=== PATIENT | female | born 1975 | race Caucasian/White ===

== ENCOUNTER 2016-06-01 23:30 | Emergency (ER) | payer OTHER ==
[~2016-06-01] VITALS: Ht 160 cm; Wt 106.6 kg
[~2016-06-01 23:30] MED LIST: ADVAIR 500/501 DISK IH; ALBUTEROL SULF8.5 GM IH; AMITRIPTYLINE H10 MG PO; ASPIR-LOW81 MG PO; ASPIRIN EC325 MG PO; ASPIRIN325 MG PO; ASPIRIN81 M2 PO; AVELOX400 MG PO; Aspirin E.C. PO; BUSPAR30 MG PO; BYSTOLIC5 MG PO; Buspar PO; CELEBREX100 MG PO; CHLORASEPTIC177 ML MM; CIPRO500 MG PO; CLINDAMYCIN HC300 MG PO; CRESTOR10 MG PO; CYMBALTA60 MG PO; Colace PO; DURAGESIC12 MCG TD; DURAGESIC25 MCG TD; DURAGESIC50 MCG TD; ENDOCET 5-3251 EACH PO; ERGOCALCIF50000 UNIT PO; ESCITALOPRAM OX10 MG PO; ESCITALOPRAM OX20 MG PO; FENTANYL; FENTANYL1 EAC1 TD; FIORICET 50-301 EACH PO; FIORICET,ESG1 TABLET PO; FLONASE16 G1 BOTH NARES; FLONASE16 G1 NS; GABAPENTIN400 MG PO; GABAPENTIN800 MG PO; GLUCAGON1 MG IM; GLUCOPHAGE XR,500 MG PO; GLUCOPHAGE500 MG PO; Glucophage PO; HUMALOG100 UNIT/1 SC; HUMALOG100 UNITS/ PO; HYDROCODON-ACE1 EAC7 PO; Habitrol,Nicoderm CQ TD; IBUPROFEN800 MG PO; INSULIN PUMP SC; INSULIN PUMP SCCONT; IRON55 MG PO; JANUMET 50/11 TABLET PO; KEFLEX500 MG PO; KEPPRA500 MG PO; Keppra PO; LANTUS 10100 UNITS/ SC; LANTUS 3 M100 UNITS1 SC; LANTUS100 UNIT/1 SQ; LEVAQUIN750 MG PO; LEVEMIR FL100 UNIT/1 SC; LEVETIRACETAM500 MG PO; LEVOTHROID150 MCG PO; LEVOTHYROXINE125 MCG PO; LEVOTHYROXINE175 MCG PO; LEVOXYL150 MCG PO; LEVOXYL25 MCG PO; LEXAPRO10 MG PO; LEXAPRO20 MG PO; LO-DOSE ASPIRIN81 M1 PO; LORTAB 5-325 M1 EACH PO; LOVASTATIN40 MG PO; LOW DOSE ASPIRI81 M1 PO; MAXALT10 MG PO; METFORMIN HCL1000 M1 PO; METOPROLOL SUCC50 MG PO; MEVACOR40 MG PO; MOTRIN600 MG PO; MULTIPLE VITAM1 EAC1 PO; Maalox, Mylanta PO; Milk Of Magnesia,MOM PO; NEURONTIN400 MG PO; NORCO 5-325 TA1 EACH PO; NOVOLOG PE100 UNITS/ SC; NOVOLOG100 UNIT/2 SQ; Neurontin PO; OXYCODONE-APAP1 EACH PO; PERCOCET 5/31 TABLET PO; PREDNISONE2.5 MG PO; PREDNISONE5 MG PO; PROMETHAZINE HC25 M1 PO; Percocet 5/325,Endoc PO; RANITIDINE HCL300 MG PO; RAYOS5 MG PO; RELPAX40 MG PO; ROPINIROLE HCL1 MG PO; Rocephin IV; SINGULAIR10 MG PO; SYNTHROID125 MCG PO; SYNTHROID200 MCG PO; T:SLIM1 EAC1 MC; THROAT SPRAY177 M1 MM; TOPAMAX200 MG PO; TOPROL XL50 MG PO; TYLENOL REGULA325 MG PO; Toprol XL PO; VENTOLIN17 GM IH; VITAMIN D50000 UNI1; VITAMIN D50000 UNI1 PO; XOPENEX HF200 INHALA IH; ZANTAC300 MG PO; ZEASORB POWDE70.9 GM TP; ZEASORB-AF70 G1 TP; ZITHROMAX500 MG PO; ZOFRAN ODT4 MG PO; ZOFRAN4 MG PO; Zeasorb Antifungal Treatment,Mitrazol Powder TP; Zofran IV; [UNRECOGNIZED DRUG - OTHER] PO; morphine Sulfate IV
[2016-06-02 02:14] LABS: HEMATOCRIT 43.1 % (36.0-46.0); MCHC 33.9 G/DL (30.0-36.0); MCV 85.7 FL (83-99); MEAN PLAT.VOLUME 10.2 uM^3 (9.5-12.4); PLATELET COUNT 202 K/uL (156-360); RBC DIS.WIDTH-CV 17.4 % (11.8-14.6); RBC DIS.WIDTH-SD 53.7 % (39-53); RED BLOOD COUNT 5.03 M/uL (3.80-5.20); WHITE BLOOD COUNT 7.5 K/uL (4.1-10.2)
[2016-06-02 02:23] LABS: CHLORIDE 108 mEq/L (99-109); POTASSIUM 3.7 mEq/L (3.7-5.4); SODIUM 140 mEq/L (136-147)
[2016-06-02 02:25] LABS: GLUCOSE 76 mg/dL (70-99)
[2016-06-02 02:26] LABS: ANION GAP 12 MEQ/L (2-14)
[2016-06-02 02:28] LABS: GFR ESTIMATE (CALCULATED) > 59 mL/min/
[2016-06-02 02:29] LABS: UREA NITROGEN (BUN) 9 mg/dL (9-23)
[2016-06-02 06:56] VITALS: BP 129/66
== END 2016-06-02 06:59 | disposition short-term general hospital (02) ==
LOC: EME 23:30
PROVIDERS: Emergency Medicine
DX: R51 Headache (principal); R42 Dizziness and giddiness; R11.0 Nausea; G91.9 Hydrocephalus, unspecified; Z98.2 Presence of cerebrospinal fluid drainage device; E11.9 Type 2 diabetes mellitus without complications; K21.9 Gastro-esophageal reflux disease without esophagitis; R56.9 Unspecified convulsions; Z86.73 Personal history of transient ischemic attack (TIA), and cerebral infarction without residual deficits; Z79.4 Long term (current) use of insulin; F17.200 Nicotine dependence, unspecified, uncomplicated
CPT/HCPCS: 70250; 70360; 70450; 71010; 74000; 80048; 85027; 99281; 99285; J0780

== ENCOUNTER 2016-06-13 23:13 | Emergency (ER) | payer OTHER ==
[~2016-06-13] VITALS: Ht 160 cm; Wt 104.1 kg
[2016-06-14 01:40] LABS: HEMATOCRIT 43.7 % (36.0-46.0); MCH 29.1 PG (29.0-34.0); MCHC 33.9 G/DL (30.0-36.0); MCV 85.9 FL (83-99); MEAN PLAT.VOLUME 10.9 uM^3 (9.5-12.4); PLATELET COUNT 200 K/uL (156-360); RBC DIS.WIDTH-CV 16.7 % (11.8-14.6); RBC DIS.WIDTH-SD 52.2 % (39-53); RED BLOOD COUNT 5.09 M/uL (3.80-5.20); WHITE BLOOD COUNT 8.2 K/uL (4.1-10.2)
[2016-06-14] MEDS ORDERED: XARELTO20 MG PO (01:47)
[2016-06-14] MEDS ORDERED: LEVOTHYROXINE175 MCG PO (01:47)
[2016-06-14] MEDS ORDERED: INSULIN PUMP SCCONT (01:52)
[2016-06-14] MEDS ORDERED: PROAIR HFA8.5 GM IH (01:52)
[2016-06-14 02:57] LABS: CHLORIDE 109 mEq/L (99-109); POTASSIUM 3.6 mEq/L (3.7-5.4); SODIUM 142 mEq/L (136-147)
[2016-06-14 02:59] LABS: GLUCOSE 117 mg/dL (70-99)
[2016-06-14 03:00] LABS: ANION GAP 12 MEQ/L (2-14)
[2016-06-14 03:03] LABS: GFR ESTIMATE (CALCULATED) > 59 mL/min/
[2016-06-14 03:04] LABS: UREA NITROGEN (BUN) 13 mg/dL (9-23)
[2016-06-14 05:40] VITALS: BP 103/62
== END 2016-06-14 05:43 | disposition short-term general hospital (02) ==
LOC: EME 23:13
PROVIDERS: Emergency Medicine
DX: R51 Headache (principal); H53.149 Visual discomfort, unspecified; Z98.2 Presence of cerebrospinal fluid drainage device; E11.9 Type 2 diabetes mellitus without complications; F31.9 Bipolar disorder, unspecified; K21.9 Gastro-esophageal reflux disease without esophagitis; R56.9 Unspecified convulsions; Z86.73 Personal history of transient ischemic attack (TIA), and cerebral infarction without residual deficits; Z79.4 Long term (current) use of insulin; F17.200 Nicotine dependence, unspecified, uncomplicated
CPT/HCPCS: 70250; 70360; 70450; 71010; 74000; 80048; 81003; 85027; 87040; 99281; 99285; J2270; J2405; J2765

== ENCOUNTER 2016-06-26 23:18 | Emergency (ER) | payer OTHER ==
[~2016-06-26] VITALS: Ht 160 cm; Wt 103.7 kg
[~2016-06-26 23:18] MED LIST changes: +PROAIR HFA8.5 GM IH; +XARELTO20 MG PO
[2016-06-26 23:37] LABS: POINT-OF-CARE METER ID UU13113778; POINT-OF-CARE USER ID NUTMMM10
[2016-06-26 23:53] LABS: HEMATOCRIT 41.9 % (36.0-46.0); MCH 29.4 PG (29.0-34.0); MCHC 33.2 G/DL (30.0-36.0); MCV 88.8 FL (83-99); MEAN PLAT.VOLUME 10.9 uM^3 (9.5-12.4); PLATELET COUNT 193 K/uL (156-360); RBC DIS.WIDTH-CV 16.9 % (11.8-14.6); RBC DIS.WIDTH-SD 54.1 % (39-53); RED BLOOD COUNT 4.72 M/uL (3.80-5.20)
[2016-06-27 00:07] LABS: CHLORIDE 102 mEq/L (99-109); POTASSIUM 4.3 mEq/L (3.7-5.4); SODIUM 138 mEq/L (136-147)
[2016-06-27 00:09] LABS: GLUCOSE 233 mg/dL (70-99)
[2016-06-27 00:10] LABS: ANION GAP 11 MEQ/L (2-14)
[2016-06-27 00:11] LABS: TOTAL BILIRUBIN 0.5 mg/dL (0.0-1.0)
[2016-06-27 00:13] LABS: ALKALINE PHOSPHATASE 136 IU/L (3-129); GFR ESTIMATE (CALCULATED) > 59 mL/min/
[2016-06-27 00:14] LABS: UREA NITROGEN (BUN) 8 mg/dL (9-23)
[2016-06-27 00:23] LABS: QUANTITATIVE HCG < 4.0 MIU/ML
[2016-06-27 01:36] LABS: POINT-OF-CARE METER ID UU13113702
[2016-06-27 02:27] LABS: EOSINOPHIL (%) 0 % (0-5); IMMATURE GRANULOCYTE (%) 0.2 % (0.0-0.7); LYMPHOCYTE COUNT 2.6 K/uL (1.0-2.8); MONOCYTE (%) 9.8 % (3-12); MONOCYTE COUNT 0.9 K/uL (0-0.8); NEUTROPHIL (%) 61.3 % (45-76); NEUTROPHIL COUNT 5.6 K/uL (1.8-6.4)
[2016-06-27 02:39] LABS: ADD MIUA? NO; BILIRUBIN NEGATIVE; BLOOD NEGATIVE; COLOR YELLOW ((YELLOW)); GLUCOSE (STRIP) >=500; KETONES NEGATIVE; LEUKOCYTES NEGATIVE; NITRITE NEGATIVE; PROTEIN (STRIP) NEGATIVE; SPECIFIC GRAVITY 1.011 (1.000-1.030); UCUL ADDED? NO; UROBILINOGEN 0.2 MG/DL (0.2-1.0)
[2016-06-27 03:17] VITALS: BP 112/67
== END 2016-06-27 03:19 | disposition home or self-care (01) ==
LOC: EME 23:18
PROVIDERS: Emergency Medicine
DX: E10.65 Type 1 diabetes mellitus with hyperglycemia (principal); Z76.4 Other boarder to healthcare facility; Z96.41 Presence of insulin pump (external) (internal); Z98.2 Presence of cerebrospinal fluid drainage device; R11.2 Nausea with vomiting, unspecified; Z98.890 Other specified postprocedural states; Z79.01 Long term (current) use of anticoagulants; F17.200 Nicotine dependence, unspecified, uncomplicated
CPT/HCPCS: 80053; 81003; 82948; 84702; 85025; 85027; 99281; 99285; J2270; J2405; J7030

== ENCOUNTER 2016-06-29 12:22 | Emergency (ER) | payer OTHER ==
[~2016-06-29] VITALS: Ht 160 cm; Wt 104.1 kg
[2016-06-29 13:33] LABS: HEMATOCRIT 41.1 % (36.0-46.0); MCH 29.7 PG (29.0-34.0); MCHC 33.6 G/DL (30.0-36.0); MCV 88.6 FL (83-99); MEAN PLAT.VOLUME 10.6 uM^3 (9.5-12.4); PLATELET COUNT 188 K/uL (156-360); RBC DIS.WIDTH-CV 17.1 % (11.8-14.6); RBC DIS.WIDTH-SD 53.9 % (39-53); RED BLOOD COUNT 4.64 M/uL (3.80-5.20); WHITE BLOOD COUNT 7.4 K/uL (4.1-10.2)
[2016-06-29 13:43] LABS: PROTHROMBIN TIME 11.7 (9.2-11.2); PTT 43.9 (25-32)
[2016-06-29 13:47] LABS: CHLORIDE 107 mEq/L (99-109); INTER. NORMALIZED RATIO 1.1; POTASSIUM 3.8 mEq/L (3.7-5.4); SODIUM 140 mEq/L (136-147)
[2016-06-29 13:49] LABS: GLUCOSE 123 mg/dL (70-99)
[2016-06-29 13:50] LABS: ANION GAP 8 MEQ/L (2-14)
[2016-06-29 13:51] LABS: TOTAL BILIRUBIN 0.6 mg/dL (0.0-1.0)
[2016-06-29 13:53] LABS: ALKALINE PHOSPHATASE 131 IU/L (3-129); GFR ESTIMATE (CALCULATED) > 59 mL/min/
[2016-06-29 13:54] LABS: UREA NITROGEN (BUN) 7 mg/dL (9-23)
[2016-06-29] MEDS ORDERED: VIBRAMYCIN100 MG PO (15:05)
[2016-06-29 15:36] VITALS: BP 128/67
== END 2016-06-29 15:38 | disposition home or self-care (01) ==
LOC: RME 12:22 → EME 12:22 → RME 15:38
PROVIDERS: Physician Assistant
DX: I80.9 Phlebitis and thrombophlebitis of unspecified site (principal); L03.114 Cellulitis of left upper limb; E11.9 Type 2 diabetes mellitus without complications; G91.9 Hydrocephalus, unspecified; G89.29 Other chronic pain; Z79.01 Long term (current) use of anticoagulants; Z95.2 Presence of prosthetic heart valve; Z98.890 Other specified postprocedural states; Z86.718 Personal history of other venous thrombosis and embolism; Z79.4 Long term (current) use of insulin
CPT/HCPCS: 80053; 85027; 85610; 85730; 93971; 99281; 99284

== ENCOUNTER 2016-07-17 12:46 | Inpatient (IN) | payer OTHER ==
[~2016-07-17] VITALS: Ht 160 cm; Wt 101.7 kg
[~2016-07-17 12:46] MED LIST changes: +VIBRAMYCIN100 MG PO
[2016-07-17 16:09] LABS: HEMATOCRIT 44.7 % (36.0-46.0); MCH 30.5 PG (29.0-34.0); MCV 89.6 FL (83-99); MEAN PLAT.VOLUME 10.9 uM^3 (9.5-12.4); PLATELET COUNT 193 K/uL (156-360); RBC DIS.WIDTH-CV 15.7 % (11.8-14.6); RBC DIS.WIDTH-SD 51.3 % (39-53); RED BLOOD COUNT 4.99 M/uL (3.80-5.20); WHITE BLOOD COUNT 7.3 K/uL (4.1-10.2)
[2016-07-17 16:36] LABS: CHLORIDE 105 mEq/L (99-109); POTASSIUM 3.4 mEq/L (3.7-5.4); SODIUM 140 mEq/L (136-147)
[2016-07-17 16:39] LABS: GLUCOSE 111 mg/dL (70-99)
[2016-07-17 16:40] LABS: ANION GAP 13 MEQ/L (2-14)
[2016-07-17 16:41] LABS: TOTAL BILIRUBIN 0.8 mg/dL (0.0-1.0)
[2016-07-17 16:42] LABS: ALKALINE PHOSPHATASE 184 IU/L (3-129); GFR ESTIMATE (CALCULATED) > 59 mL/min/
[2016-07-17 16:43] LABS: UREA NITROGEN (BUN) 14 mg/dL (9-23)
[2016-07-17 23:32] LABS: ADD MIUA? YES; BILIRUBIN NEGATIVE; BLOOD NEGATIVE; COLOR YELLOW ((YELLOW)); GLUCOSE (STRIP) >=500; KETONES 20; LEUKOCYTES NEGATIVE; NITRITE NEGATIVE; PROTEIN (STRIP) NEGATIVE; UROBILINOGEN 0.2 MG/DL (0.2-1.0)
[2016-07-17 23:43] LABS: BACTERIA 2+ /HPF; EPITHELIAL CELLS 2+ /HPF; MUCUS TRACE /LPF; RED BLOOD CELLS 20-30 /HPF (0-5); UCUL ADDED? NO; WHITE BLOOD CELLS 0-5 /HPF (0-5)
[2016-07-18 01:30] LABS: POINT-OF-CARE METER ID UU13113702
[2016-07-18 03:11] VITALS: BP 119/60
[2016-07-18 06:47] LABS: HEMATOCRIT 43.5 % (36.0-46.0); MCH 29.3 PG (29.0-34.0); MCHC 31.5 G/DL (30.0-36.0); MCV 93.1 FL (83-99); MEAN PLAT.VOLUME 11.3 uM^3 (9.5-12.4); PLATELET COUNT 145 K/uL (156-360); RBC DIS.WIDTH-CV 15.8 % (11.8-14.6); RBC DIS.WIDTH-SD 54.3 % (39-53); RED BLOOD COUNT 4.67 M/uL (3.80-5.20); WHITE BLOOD COUNT 5.4 K/uL (4.1-10.2)
[2016-07-18 07:11] LABS: ALKALINE PHOSPHATASE 155 IU/L (3-129); ANION GAP 13 MEQ/L (2-14); CHLORIDE 103 MEQ/L (99-109); GFR ESTIMATE (CALCULATED) > 59 mL/min/; SAMPLE HEMOLYSIS CHECK 0; SAMPLE ICTERIC CHECK 0; SAMPLE LIPEMIA CHECK 0; SODIUM 134 MEQ/L (136-147); UREA NITROGEN (BUN) 12 mg/dL (9-23)
[2016-07-18 07:19] LABS: GLUCOSE 328 mg/dL (70-99); POTASSIUM 4.3 MEQ/L (3.7-5.4)
[2016-07-18 08:19] LABS: POINT-OF-CARE METER ID UU13113831
[2016-07-18 08:22] VITALS: BP 107/56
[2016-07-18 10:52] LABS: POINT-OF-CARE METER ID UU14100415
[2016-07-18 11:56] VITALS: BP 125/78
[2016-07-18 12:05] LABS: POINT-OF-CARE METER ID UU13113831
[2016-07-18 16:08] VITALS: BP 118/72
[2016-07-18 17:42] LABS: POINT-OF-CARE METER ID UU14162513
[2016-07-18 20:41] VITALS: BP 99/53
[2016-07-18 23:01] VITALS: BP 100/55
[2016-07-19 03:57] VITALS: BP 116/57
[2016-07-19 08:06] VITALS: BP 119/58
[2016-07-19 12:44] LABS: POINT-OF-CARE METER ID UU13113700
[2016-07-19 12:48] VITALS: BP 119/57
[2016-07-19 15:24] VITALS: BP 96/54
[2016-07-19 16:43] LABS: POINT-OF-CARE METER ID UU13113700
[2016-07-19 19:00] VITALS: BP 123/71
[2016-07-19 21:43] LABS: POINT-OF-CARE METER ID UU13113831
[2016-07-20] VITALS: BP 135/76
[2016-07-20 04:59] VITALS: BP 119/56
[2016-07-20 07:35] VITALS: BP 114/53
[2016-07-20 12:11] VITALS: BP 100/44
[2016-07-20 16:30] VITALS: BP 114/52
== END 2016-07-20 19:14 | disposition short-term general hospital (02) | DRG 93 ==
LOC: EME 12:46 → EDOF 07-18 01:15 → 5WEST 07-18 02:31
PROVIDERS: Internal Medicine; Nurse Practitioner Family; Student in an Organized Health Care Education/Training Program
DX: T85.02XA Displacement of ventricular intracranial (communicating) shunt, initial encounter (principal); G89.29 Other chronic pain; F32.9 Major depressive disorder, single episode, unspecified; E78.00 Pure hypercholesterolemia, unspecified; E11.9 Type 2 diabetes mellitus without complications; F17.200 Nicotine dependence, unspecified, uncomplicated; G44.001 Cluster headache syndrome, unspecified, intractable; F40.298 Other specified phobia; Q03.9 Congenital hydrocephalus, unspecified; G40.909 Epilepsy, unspecified, not intractable, without status epilepticus; Z91.018 Allergy to other foods; Z86.718 Personal history of other venous thrombosis and embolism; Z79.4 Long term (current) use of insulin; Z86.73 Personal history of transient ischemic attack (TIA), and cerebral infarction without residual deficits; Z96.41 Presence of insulin pump (external) (internal)
CPT/HCPCS: 70450; 74176; 80053; 81003; 82948; 85027; 99281; 99285; J1170; J1644; J1815; J2270; J2405; J3010; J7030; J7042; J7050

== ENCOUNTER 2016-07-28 12:31 | Emergency (ER) | payer OTHER ==
[~2016-07-28] VITALS: Ht 160 cm; Wt 101.0 kg
[2016-07-28 13:22] LABS: EOSINOPHIL (%) 0 % (0-5); HEMATOCRIT 43.2 % (36.0-46.0); IMMATURE GRANULOCYTE (%) 0.5 % (0.0-0.7); INSTRUMENT ABS NEUTROPHIL CT 3.6 K/uL; LYMPHOCYTE COUNT 1.4 K/uL (1.0-2.8); MCH 30.4 PG (29.0-34.0); MCHC 32.6 G/DL (30.0-36.0); MCV 93.1 FL (83-99); MEAN PLAT.VOLUME 10.9 uM^3 (9.5-12.4); MONOCYTE (%) 9.3 % (3-12); MONOCYTE COUNT 0.5 K/uL (0-0.8); NEUTROPHIL (%) 65.2 % (45-76); NEUTROPHIL COUNT 3.6 K/uL (1.8-6.4); RBC DIS.WIDTH-CV 15.4 % (11.8-14.6); RBC DIS.WIDTH-SD 53.1 % (39-53); RED BLOOD COUNT 4.64 M/uL (3.80-5.20); WHITE BLOOD COUNT 5.6 K/uL (4.1-10.2)
[2016-07-28 13:25] LABS: PLATELET COUNT 204 K/uL (156-360)
[2016-07-28 13:33] LABS: CHLORIDE 108 mEq/L (99-109); POTASSIUM 3.7 mEq/L (3.7-5.4); SODIUM 142 mEq/L (136-147)
[2016-07-28 13:35] LABS: GLUCOSE 105 mg/dL (70-99)
[2016-07-28 13:36] LABS: ANION GAP 10 MEQ/L (2-14)
[2016-07-28 13:39] LABS: GFR ESTIMATE (CALCULATED) > 59 mL/min/
[2016-07-28 13:40] LABS: UREA NITROGEN (BUN) 8 mg/dL (9-23)
[2016-07-28 18:24] VITALS: BP 116/79
[2016-07-28] MEDS ORDERED: ZOFRAN ODT4 MG PO (18:24)
== END 2016-07-28 19:36 | disposition home or self-care (01) ==
LOC: EME 12:31
DX: R51 Headache (principal); Z98.2 Presence of cerebrospinal fluid drainage device; Z86.14 Personal history of Methicillin resistant Staphylococcus aureus infection; E11.9 Type 2 diabetes mellitus without complications; K21.9 Gastro-esophageal reflux disease without esophagitis; R56.9 Unspecified convulsions; Z86.73 Personal history of transient ischemic attack (TIA), and cerebral infarction without residual deficits; Z96.41 Presence of insulin pump (external) (internal); F17.200 Nicotine dependence, unspecified, uncomplicated
CPT/HCPCS: 70250; 70450; 71020; 74000; 80048; 81003; 83605; 85025; 87040; 99281; 99284; J2270; J2405; J3370

== ENCOUNTER 2016-08-01 01:43 | Emergency (ER) | payer OTHER ==
[~2016-08-01] VITALS: Ht 160 cm; Wt 102.5 kg
[2016-08-01 02:36] LABS: HEMATOCRIT 44.8 % (36.0-46.0); MCH 30.1 PG (29.0-34.0); MCHC 32.1 G/DL (30.0-36.0); MCV 93.7 FL (83-99); MEAN PLAT.VOLUME 10.4 uM^3 (9.5-12.4); PLATELET COUNT 231 K/uL (156-360); RBC DIS.WIDTH-CV 15.3 % (11.8-14.6); RED BLOOD COUNT 4.78 M/uL (3.80-5.20); WHITE BLOOD COUNT 6.9 K/uL (4.1-10.2)
[2016-08-01 02:49] LABS: CHLORIDE 107 mEq/L (99-109); POTASSIUM 4.1 mEq/L (3.7-5.4); SODIUM 143 mEq/L (136-147)
[2016-08-01 02:50] LABS: GLUCOSE 112 mg/dL (70-99)
[2016-08-01 02:52] LABS: ANION GAP 9 MEQ/L (2-14)
[2016-08-01 02:54] LABS: GFR ESTIMATE (CALCULATED) > 59 mL/min/
[2016-08-01 02:55] LABS: UREA NITROGEN (BUN) 12 mg/dL (9-23)
[2016-08-01 06:17] LABS: INFLUENZA A VIRAL ANTIGEN NEGATIVE; INFLUENZA B VIRAL ANTIGEN NEGATIVE
[2016-08-01 06:27] VITALS: BP 133/70
== END 2016-08-01 06:27 | disposition short-term general hospital (02) ==
LOC: EME 01:43
PROVIDERS: Emergency Medicine; Physician Assistant
DX: R51 Headache (principal); Z98.2 Presence of cerebrospinal fluid drainage device; R11.2 Nausea with vomiting, unspecified; E11.9 Type 2 diabetes mellitus without complications; K21.9 Gastro-esophageal reflux disease without esophagitis; R56.9 Unspecified convulsions; Z86.73 Personal history of transient ischemic attack (TIA), and cerebral infarction without residual deficits; Z96.41 Presence of insulin pump (external) (internal); F17.200 Nicotine dependence, unspecified, uncomplicated
CPT/HCPCS: 70250; 70360; 70450; 71010; 74000; 80048; 83605; 85027; 87040; 87502; 93005; 99281; 99285; J2270; J2405; J3010; J7030

== ENCOUNTER 2016-08-07 19:10 | Emergency (ER) | payer OTHER ==
[~2016-08-07] VITALS: Ht 160 cm; Wt 101.2 kg
[2016-08-07 20:43] LABS: HEMATOCRIT 41.4 % (36.0-46.0); MCH 30.2 PG (29.0-34.0); MCHC 32.1 G/DL (30.0-36.0); MCV 94.1 FL (83-99); MEAN PLAT.VOLUME 10.6 uM^3 (9.5-12.4); PLATELET COUNT 189 K/uL (156-360); RBC DIS.WIDTH-CV 14.9 % (11.8-14.6); RBC DIS.WIDTH-SD 52.1 % (39-53); WHITE BLOOD COUNT 5.3 K/uL (4.1-10.2)
[2016-08-07 21:02] LABS: CHLORIDE 108 mEq/L (99-109); POTASSIUM 3.5 mEq/L (3.7-5.4); SODIUM 137 mEq/L (136-147)
[2016-08-07 21:04] LABS: GLUCOSE 212 mg/dL (70-99)
[2016-08-07 21:06] LABS: ANION GAP 11 MEQ/L (2-14)
[2016-08-07 21:08] LABS: GFR ESTIMATE (CALCULATED) > 59 mL/min/
[2016-08-07 21:09] LABS: UREA NITROGEN (BUN) 12 mg/dL (9-23)
[2016-08-07 23:13] LABS: ADD MIUA? NO; BILIRUBIN NEGATIVE; BLOOD NEGATIVE; COLOR YELLOW ((YELLOW)); GLUCOSE (STRIP) >=500; KETONES NEGATIVE; LEUKOCYTES NEGATIVE; NITRITE NEGATIVE; PROTEIN (STRIP) NEGATIVE; UCUL ADDED? NO; UROBILINOGEN 0.2 MG/DL (0.2-1.0)
[2016-08-07 23:50] VITALS: BP 120/82
== END 2016-08-08 00:04 | disposition home or self-care (01) ==
LOC: EME 19:10
PROVIDERS: Emergency Medicine
DX: R51 Headache (principal); R11.2 Nausea with vomiting, unspecified; R42 Dizziness and giddiness; Z98.2 Presence of cerebrospinal fluid drainage device; E11.9 Type 2 diabetes mellitus without complications; K21.9 Gastro-esophageal reflux disease without esophagitis; R56.9 Unspecified convulsions; Z86.73 Personal history of transient ischemic attack (TIA), and cerebral infarction without residual deficits; Z96.41 Presence of insulin pump (external) (internal); F17.200 Nicotine dependence, unspecified, uncomplicated
CPT/HCPCS: 70450; 71010; 72040; 74000; 80048; 81003; 85027; 93005; 99281; 99285; J2405; J3010; J7030

== ENCOUNTER 2016-09-06 15:16 | Emergency (ER) | payer OTHER ==
[~2016-09-06] VITALS: Ht 160 cm; Wt 98.7 kg
[2016-09-06] MEDS ORDERED: LEVO-T175 MCG PO (15:50)
[2016-09-06 16:24] LABS: HEMATOCRIT 43.4 % (36.0-46.0); MCH 30.8 PG (29.0-34.0); MCHC 32.7 G/DL (30.0-36.0); MCV 94.1 FL (83-99); MEAN PLAT.VOLUME 10.2 uM^3 (9.5-12.4); PLATELET COUNT 180 K/uL (156-360); RBC DIS.WIDTH-SD 48.7 % (39-53); RED BLOOD COUNT 4.61 M/uL (3.80-5.20); WHITE BLOOD COUNT 5.8 K/uL (4.1-10.2)
[2016-09-06 16:33] LABS: CHLORIDE 109 mEq/L (99-109); POTASSIUM 3.7 mEq/L (3.7-5.4); SODIUM 141 mEq/L (136-147)
[2016-09-06 16:34] LABS: GLUCOSE 96 mg/dL (70-99)
[2016-09-06 16:36] LABS: ANION GAP 11 MEQ/L (2-14)
[2016-09-06 16:38] LABS: GFR ESTIMATE (CALCULATED) > 59 mL/min/
[2016-09-06 16:39] LABS: UREA NITROGEN (BUN) 6 mg/dL (9-23)
[2016-09-06 16:47] LABS: QUANTITATIVE HCG < 4.0 MIU/ML
[2016-09-06 20:00] VITALS: BP 108/72
== END 2016-09-06 20:00 | disposition home or self-care (01) ==
LOC: EME 15:16
PROVIDERS: Emergency Medicine
DX: R51 Headache (principal); Z98.2 Presence of cerebrospinal fluid drainage device; E11.9 Type 2 diabetes mellitus without complications; K21.9 Gastro-esophageal reflux disease without esophagitis; R56.9 Unspecified convulsions; Z86.73 Personal history of transient ischemic attack (TIA), and cerebral infarction without residual deficits; Z96.41 Presence of insulin pump (external) (internal); F17.200 Nicotine dependence, unspecified, uncomplicated
CPT/HCPCS: 70250; 70450; 71010; 72040; 74000; 80048; 84702; 85027; 99281; 99284; J1100; J1885; J2765

== ENCOUNTER 2016-11-20 17:36 | Emergency (ER) | payer OTHER ==
[~2016-11-20] VITALS: Ht 160 cm; Wt 95.4 kg
[~2016-11-20 17:36] MED LIST changes: +LEVO-T175 MCG PO
[2016-11-20 18:20] LABS: HEMATOCRIT 44.1 % (36.0-46.0); MCH 31.1 PG (29.0-34.0); MCHC 33.1 G/DL (30.0-36.0); MCV 93.8 FL (83-99); MEAN PLAT.VOLUME 10.4 uM^3 (9.5-12.4); PLATELET COUNT 193 K/uL (156-360); RBC DIS.WIDTH-SD 44.9 % (39-53)
[2016-11-20 18:29] LABS: CHLORIDE 106 mEq/L (99-109); POTASSIUM 3.7 mEq/L (3.7-5.4); SODIUM 141 mEq/L (136-147)
[2016-11-20 18:31] LABS: GLUCOSE 69 mg/dL (70-99)
[2016-11-20 18:32] LABS: ANION GAP 10 MEQ/L (2-14)
[2016-11-20 18:35] LABS: GFR ESTIMATE (CALCULATED) > 59 mL/min/
[2016-11-20 18:36] LABS: UREA NITROGEN (BUN) 9 mg/dL (9-23)
[2016-11-20 20:18] VITALS: BP 126/65
== END 2016-11-20 20:20 | disposition home or self-care (01) ==
LOC: EME 17:36
PROVIDERS: Emergency Medicine
DX: R51 Headache (principal); Z98.2 Presence of cerebrospinal fluid drainage device; E11.9 Type 2 diabetes mellitus without complications; K21.9 Gastro-esophageal reflux disease without esophagitis; F31.9 Bipolar disorder, unspecified; R56.9 Unspecified convulsions; Z86.73 Personal history of transient ischemic attack (TIA), and cerebral infarction without residual deficits; Z96.41 Presence of insulin pump (external) (internal); F17.200 Nicotine dependence, unspecified, uncomplicated
CPT/HCPCS: 70450; 80048; 85027; 99281; 99284; J1200; J2765

== ENCOUNTER 2016-12-27 23:36 | Emergency (ER) | payer OTHER ==
[~2016-12-27] VITALS: Ht 160 cm; Wt 97.4 kg
[2016-12-28 02:36] VITALS: BP 100/61
== END 2016-12-28 02:39 | disposition home or self-care (01) ==
LOC: EME 23:36
DX: R51 Headache (principal); R11.2 Nausea with vomiting, unspecified; Z98.2 Presence of cerebrospinal fluid drainage device; Z86.73 Personal history of transient ischemic attack (TIA), and cerebral infarction without residual deficits; E11.9 Type 2 diabetes mellitus without complications; Z79.4 Long term (current) use of insulin; Z96.41 Presence of insulin pump (external) (internal); Z90.49 Acquired absence of other specified parts of digestive tract; Z90.710 Acquired absence of both cervix and uterus; F17.200 Nicotine dependence, unspecified, uncomplicated
CPT/HCPCS: 70450; 99281; 99284; J0780; J1200; J1885; J2270; J7030

== ENCOUNTER 2017-01-12 23:54 | Emergency (ER) | payer OTHER ==
[~2017-01-12] VITALS: Ht 160 cm; Wt 97.6 kg
[2017-01-13 01:29] LABS: EOSINOPHIL (%) 0 % (0-5); HEMATOCRIT 42.3 % (36.0-46.0); IMMATURE GRANULOCYTE (%) 0.3 % (0.0-0.7); INSTRUMENT ABS NEUTROPHIL CT 4.6 K/uL; LYMPHOCYTE COUNT 2.5 K/uL (1.0-2.8); MCH 31.5 PG (29.0-34.0); MCHC 33.3 G/DL (30.0-36.0); MCV 94.6 FL (83-99); MEAN PLAT.VOLUME 10.8 uM^3 (9.5-12.4); MONOCYTE (%) 7.7 % (3-12); MONOCYTE COUNT 0.6 K/uL (0-0.8); NEUTROPHIL (%) 59.4 % (45-76); NEUTROPHIL COUNT 4.6 K/uL (1.8-6.4); PLATELET COUNT 185 K/uL (156-360); RBC DIS.WIDTH-CV 13.6 % (11.8-14.6); RBC DIS.WIDTH-SD 47.1 % (39-53); RED BLOOD COUNT 4.47 M/uL (3.80-5.20); WHITE BLOOD COUNT 7.7 K/uL (4.1-10.2)
[2017-01-13 01:37] LABS: CHLORIDE 107 mEq/L (99-109); SODIUM 140 mEq/L (136-147)
[2017-01-13 01:39] LABS: GLUCOSE 322 mg/dL (70-99)
[2017-01-13 01:40] LABS: ANION GAP 10 MEQ/L (2-14)
[2017-01-13 01:41] LABS: TOTAL BILIRUBIN 0.4 mg/dL (0.0-1.0)
[2017-01-13 01:42] LABS: ALKALINE PHOSPHATASE 148 IU/L (3-129)
[2017-01-13 01:43] LABS: GFR ESTIMATE (CALCULATED) > 59 mL/min/
[2017-01-13 01:44] LABS: UREA NITROGEN (BUN) 9 mg/dL (9-23)
[2017-01-13 01:48] LABS: POTASSIUM 3.1 mEq/L (3.7-5.4)
[2017-01-13 03:07] LABS: INTER. NORMALIZED RATIO 1.1; PROTHROMBIN TIME 12.4 SEC (10.2-12.9)
[2017-01-13 03:09] LABS: PTT 31.7 SEC (25-37)
[2017-01-13 04:32] VITALS: BP 109/45
== END 2017-01-13 04:34 | disposition short-term general hospital (02) ==
LOC: EME 23:54
PROVIDERS: Emergency Medicine
DX: R51 Headache (principal); Z98.2 Presence of cerebrospinal fluid drainage device; G40.909 Epilepsy, unspecified, not intractable, without status epilepticus; E11.9 Type 2 diabetes mellitus without complications; Z79.4 Long term (current) use of insulin; Z96.41 Presence of insulin pump (external) (internal); Z86.73 Personal history of transient ischemic attack (TIA), and cerebral infarction without residual deficits; F17.200 Nicotine dependence, unspecified, uncomplicated
CPT/HCPCS: 70250; 70450; 71010; 74000; 80053; 85025; 85610; 85730; 99281; 99285; J1885; J2270; J2765; J7030

== ENCOUNTER 2017-05-09 21:12 | Observation (INO) | payer OTHER ==
[~2017-05-09] VITALS: Ht 160 cm; Wt 102.3 kg
[~2017-05-09 21:12] MED LIST changes: -LEVO-T175 MCG PO; +SYNTHROID150 MCG PO
[2017-05-09 22:09] LABS: HEMATOCRIT 44.5 % (36.0-46.0); HEMOGLOBIN 15.1 G/DL (11.9-15.5); MCH 32.3 PG (29.0-34.0); MCHC 33.9 G/DL (30.0-36.0); MCV 95.3 FL (83-99); PLATELET COUNT 174 K/uL (156-360); RBC DIS.WIDTH-CV 13.7 % (11.8-14.6); RBC DIS.WIDTH-SD 48.2 % (39-53); RED BLOOD COUNT 4.67 M/uL (3.80-5.20)
[2017-05-09 22:18] LABS: ALBUMIN 3.7 g/dL (3.2-4.8); CHLORIDE 101 mEq/L (99-109); POTASSIUM 4.3 mEq/L (3.7-5.4); SODIUM 134 mEq/L (136-147)
[2017-05-09 22:20] LABS: TOTAL PROTEIN 6.5 g/dL (6.4-8.3)
[2017-05-09 22:22] LABS: TOTAL BILIRUBIN 0.6 mg/dL (0.0-1.0)
[2017-05-09 22:24] LABS: ALKALINE PHOSPHATASE 166 IU/L (3-129); CREATININE 1.1 mg/dL (0.6-1.3); GFR ESTIMATE (CALCULATED) 58 mL/min/
[2017-05-09 22:25] LABS: UREA NITROGEN (BUN) 16 mg/dL (9-23)
[2017-05-09 22:26] LABS: AST (GOT) 20 IU/L (2-34); GLUCOSE 491 mg/dL (70-99)
[2017-05-09 22:27] LABS: ALT (GPT) 25 IU/L (3-49)
[2017-05-09] MEDS ORDERED: XARELTO20 MG PO (23:05)
[2017-05-09 23:07] LABS: APPEARANCE CLEAR ((CLEAR)); BILIRUBIN NEGATIVE; BLOOD SMALL; COLOR STRAW ((YELLOW)); GLUCOSE (STRIP) >=500; KETONES 5; LEUKOCYTES NEGATIVE; NITRITE NEGATIVE; PROTEIN (STRIP) NEGATIVE; SPECIFIC GRAVITY 1.029 (1.000-1.030); UROBILINOGEN 0.2 MG/DL (0.2-1.0)
[2017-05-09 23:12] LABS: BACTERIA NONE SEEN /HPF; EPITHELIAL CELLS RARE /HPF; MUCUS TRACE /LPF; RED BLOOD CELLS 0-5 /HPF (0-5); UCUL ADDED? NO; WHITE BLOOD CELLS 0-5 /HPF (0-5)
[2017-05-10 01:14] VITALS: BP 128/59
[2017-05-10 04:02] VITALS: BP 106/55
[2017-05-10 08:15] VITALS: BP 103/63
[2017-05-10 11:20] VITALS: BP 112/53
[2017-05-10 16:05] VITALS: BP 110/69
[2017-05-10 19:45] VITALS: BP 141/73
[2017-05-11 01:02] VITALS: BP 120/60
[2017-05-11 05:55] LABS: HEMATOCRIT 40.2 % (36.0-46.0); HEMOGLOBIN 13.3 G/DL (11.9-15.5); MCH 31.5 PG (29.0-34.0); MCHC 33.1 G/DL (30.0-36.0); MCV 95.3 FL (83-99); PLATELET COUNT 153 K/uL (156-360); RBC DIS.WIDTH-CV 13.5 % (11.8-14.6); RBC DIS.WIDTH-SD 47.8 % (39-53); RED BLOOD COUNT 4.22 M/uL (3.80-5.20); WHITE BLOOD COUNT 6.9 K/uL (4.1-10.2)
[2017-05-11 05:59] VITALS: BP 129/56
[2017-05-11 06:18] LABS: CHLORIDE 106 MEQ/L (99-109); CREATININE 0.8 MG/DL (0.6-1.3); GFR ESTIMATE (CALCULATED) > 59 mL/min/; POTASSIUM 3.8 MEQ/L (3.7-5.4); SODIUM 139 MEQ/L (136-147); UREA NITROGEN (BUN) 14 mg/dL (9-23)
[2017-05-11 06:22] LABS: GLUCOSE 151 mg/dL (70-99)
[2017-05-11 09:32] VITALS: BP 114/59
== END 2017-05-11 12:15 | disposition home or self-care (01) ==
LOC: EME → EDBD 21:12 → EME 21:12 → EDOF 05-10 00:22 → 5WEST 05-10 00:22 → ENRESERV 05-10 00:23 → 5WEST 05-10 01:13
PROVIDERS: Emergency Medicine; Hospitalist; Physician Assistant; Student in an Organized Health Care Education/Training Program
DX: E10.65 Type 1 diabetes mellitus with hyperglycemia (principal); Z79.4 Long term (current) use of insulin; Z96.41 Presence of insulin pump (external) (internal); G40.909 Epilepsy, unspecified, not intractable, without status epilepticus; Q03.9 Congenital hydrocephalus, unspecified; Z86.69 Personal history of other diseases of the nervous system and sense organs; Z98.2 Presence of cerebrospinal fluid drainage device; Z86.74 Personal history of sudden cardiac arrest; Z86.14 Personal history of Methicillin resistant Staphylococcus aureus infection; K21.9 Gastro-esophageal reflux disease without esophagitis; E78.5 Hyperlipidemia, unspecified; E03.9 Hypothyroidism, unspecified; Z86.718 Personal history of other venous thrombosis and embolism; Z79.01 Long term (current) use of anticoagulants; Z90.49 Acquired absence of other specified parts of digestive tract; F17.210 Nicotine dependence, cigarettes, uncomplicated; Z90.710 Acquired absence of both cervix and uterus; Z91.018 Allergy to other foods; Z88.8 Allergy status to other drugs, medicaments and biological substances
CPT/HCPCS: 80048; 80053; 81003; 82010; 82948; 85027; 99281; 99284; G0378; J1815; J7030

== ENCOUNTER 2017-07-10 16:42 | Emergency (ER) | payer OTHER ==
[~2017-07-10] VITALS: Ht 160 cm; Wt 100.7 kg
[2017-07-10 17:26] LABS: HEMATOCRIT 42.5 % (36.0-46.0); HEMOGLOBIN 14.5 G/DL (11.9-15.5); MCH 32.8 PG (29.0-34.0); MCHC 34.1 G/DL (30.0-36.0); MCV 96.2 FL (83-99); PLATELET COUNT 167 K/uL (156-360); RBC DIS.WIDTH-CV 12.8 % (11.8-14.6); RBC DIS.WIDTH-SD 45.2 % (39-53); RED BLOOD COUNT 4.42 M/uL (3.80-5.20); WHITE BLOOD COUNT 9.2 K/uL (4.1-10.2)
[2017-07-10 17:34] LABS: ALBUMIN 3.7 g/dL (3.2-4.8); CHLORIDE 107 mEq/L (99-109); POTASSIUM 3.5 mEq/L (3.7-5.4); SODIUM 141 mEq/L (136-147)
[2017-07-10 17:37] LABS: GLUCOSE 138 mg/dL (70-99); TOTAL PROTEIN 6.2 g/dL (6.4-8.3)
[2017-07-10 17:39] LABS: TOTAL BILIRUBIN 0.5 mg/dL (0.0-1.0)
[2017-07-10 17:40] LABS: ALKALINE PHOSPHATASE 156 IU/L (3-129); CREATININE 0.8 mg/dL (0.6-1.3); GFR ESTIMATE (CALCULATED) > 59 mL/min/
[2017-07-10 17:41] LABS: UREA NITROGEN (BUN) 11 mg/dL (9-23)
[2017-07-10 17:42] LABS: AST (GOT) 26 IU/L (2-34)
[2017-07-10 17:43] LABS: ALT (GPT) 24 IU/L (3-49)
[2017-07-10 17:44] LABS: LIPASE 10 U/L (1.0-51.0)
[2017-07-10 18:25] LABS: APPEARANCE SL.HAZY ((CLEAR)); BILIRUBIN NEGATIVE; BLOOD NEGATIVE; COLOR YELLOW ((YELLOW)); GLUCOSE (STRIP) 50; KETONES NEGATIVE; LEUKOCYTES NEGATIVE; NITRITE NEGATIVE; PROTEIN (STRIP) NEGATIVE; SPECIFIC GRAVITY 1.017 (1.000-1.030); UROBILINOGEN 0.2 MG/DL (0.2-1.0)
[2017-07-10 18:32] LABS: BACTERIA RARE /HPF; CALCIUM OXALATE CRYSTALS 2+ /HPF; EPITHELIAL CELLS 1+ /HPF; MUCUS 2+ /LPF; RED BLOOD CELLS 0-5 /HPF (0-5); WHITE BLOOD CELLS 0-5 /HPF (0-5)
[2017-07-10] MEDS ORDERED: ULTRAM50 MG PO (19:13)
[2017-07-10 19:22] VITALS: BP 111/92
== END 2017-07-10 19:24 | disposition home or self-care (01) ==
LOC: EME 16:42
PROVIDERS: Emergency Medicine
DX: S20.219A Contusion of unspecified front wall of thorax, initial encounter (principal); V47.1XXA Car passenger injured in collision with fixed or stationary object in nontraffic accident, initial encounter; Y92.410 Unspecified street and highway as the place of occurrence of the external cause; E11.9 Type 2 diabetes mellitus without complications; Z96.41 Presence of insulin pump (external) (internal); K21.9 Gastro-esophageal reflux disease without esophagitis; R56.9 Unspecified convulsions; F41.9 Anxiety disorder, unspecified; F32.9 Major depressive disorder, single episode, unspecified; F31.9 Bipolar disorder, unspecified; F17.200 Nicotine dependence, unspecified, uncomplicated; Z98.2 Presence of cerebrospinal fluid drainage device; Z86.73 Personal history of transient ischemic attack (TIA), and cerebral infarction without residual deficits; Z90.49 Acquired absence of other specified parts of digestive tract; Z90.710 Acquired absence of both cervix and uterus; Z88.8 Allergy status to other drugs, medicaments and biological substances
CPT/HCPCS: 71046; 72070; 72100; 80053; 81003; 82948; 83690; 85027; 99281; 99285

== ENCOUNTER 2017-11-16 23:56 | Emergency (ER) | payer OTHER ==
[~2017-11-16] VITALS: Ht 160 cm; Wt 100.3 kg
[~2017-11-16 23:56] MED LIST changes: +ULTRAM50 MG PO
[2017-11-17 00:57] LABS: HEMATOCRIT 46.2 % (36.0-46.0); HEMOGLOBIN 15.6 G/DL (11.9-15.5); MCH 32.8 PG (29.0-34.0); MCHC 33.8 G/DL (30.0-36.0); MCV 97.3 FL (83-99); PLATELET COUNT 207 K/uL (156-360); RBC DIS.WIDTH-CV 13.8 % (11.8-14.6); RBC DIS.WIDTH-SD 50.2 % (39-53); RED BLOOD COUNT 4.75 M/uL (3.80-5.20); WHITE BLOOD COUNT 9.7 K/uL (4.1-10.2)
[2017-11-17 01:06] LABS: CHLORIDE 107 mEq/L (99-109); POTASSIUM 3.9 mEq/L (3.7-5.4); SODIUM 141 mEq/L (136-147)
[2017-11-17 01:08] LABS: GLUCOSE 145 mg/dL (70-99)
[2017-11-17 01:12] LABS: CREATININE 0.9 mg/dL (0.6-1.3); GFR ESTIMATE (CALCULATED) > 59 mL/min/
[2017-11-17 01:13] LABS: UREA NITROGEN (BUN) 12 mg/dL (9-23)
[2017-11-17 01:21] LABS: TROP-I INTERPRETATION NEGATIVE; TROPONIN-I 0.04 ng/mL (0.0-0.30)
[2017-11-17 05:36] VITALS: BP 112/58
== END 2017-11-17 05:48 | disposition short-term general hospital (02) ==
LOC: EME 23:56
PROVIDERS: Physician Assistant
DX: R51 Headache (principal); H53.9 Unspecified visual disturbance; G91.9 Hydrocephalus, unspecified; Z98.2 Presence of cerebrospinal fluid drainage device; K21.9 Gastro-esophageal reflux disease without esophagitis; E11.9 Type 2 diabetes mellitus without complications; R56.9 Unspecified convulsions; F31.9 Bipolar disorder, unspecified; F41.9 Anxiety disorder, unspecified; F32.9 Major depressive disorder, single episode, unspecified; F17.200 Nicotine dependence, unspecified, uncomplicated; Z86.73 Personal history of transient ischemic attack (TIA), and cerebral infarction without residual deficits; Z90.49 Acquired absence of other specified parts of digestive tract; Z90.710 Acquired absence of both cervix and uterus; Z79.4 Long term (current) use of insulin; Z96.41 Presence of insulin pump (external) (internal); Z88.8 Allergy status to other drugs, medicaments and biological substances
CPT/HCPCS: 70250; 70450; 71045; 74018; 80048; 84484; 85027; 93005; 99281; 99285; J3010

== ENCOUNTER 2017-12-06 19:13 | Emergency (ER) | payer OTHER ==
[~2017-12-06] VITALS: Ht 160 cm; Wt 96.0 kg
[2017-12-06 20:16] LABS: BASOPHIL (%) 0.3 % (0-1); EOSINOPHIL (%) 0 % (0-5); HEMATOCRIT 44.1 % (36.0-46.0); HEMOGLOBIN 15.2 G/DL (11.9-15.5); IMMATURE GRANULOCYTE (%) 0.4 % (0.0-0.7); LYMPHOCYTE (%) 17.7 % (15-42); LYMPHOCYTE COUNT 1.8 K/uL (1.0-2.8); MCH 32.4 PG (29.0-34.0); MCHC 34.5 G/DL (30.0-36.0); MONOCYTE COUNT 0.9 K/uL (0-0.8); NEUTROPHIL (%) 72.6 % (45-76); NEUTROPHIL COUNT 7.2 K/uL (1.8-6.4); PLATELET COUNT 167 K/uL (156-360); RBC DIS.WIDTH-CV 13.4 % (11.8-14.6); RBC DIS.WIDTH-SD 46.2 % (39-53); RED BLOOD COUNT 4.69 M/uL (3.80-5.20); WHITE BLOOD COUNT 9.9 K/uL (4.1-10.2)
[2017-12-06 20:26] LABS: APPEARANCE CLEAR ((CLEAR)); BILIRUBIN NEGATIVE; BLOOD SMALL; COLOR YELLOW ((YELLOW)); GLUCOSE (STRIP) >=500; KETONES 80; LEUKOCYTES NEGATIVE; NITRITE NEGATIVE; PROTEIN (STRIP) NEGATIVE; SPECIFIC GRAVITY 1.031 (1.000-1.030); UROBILINOGEN 0.2 MG/DL (0.2-1.0)
[2017-12-06 20:43] LABS: CARBON DIOXIDE (BICARBONATE) 20.7 MEQ/L (20-31)
[2017-12-06 20:55] LABS: ALBUMIN 4.2 g/dL (3.2-4.8)
[2017-12-06 20:56] LABS: CHLORIDE 99 mEq/L (99-109); POTASSIUM 4.3 mEq/L (3.7-5.4); SODIUM 135 mEq/L (136-147)
[2017-12-06 20:58] LABS: TOTAL PROTEIN 7.4 g/dL (6.4-8.3)
[2017-12-06 21:01] LABS: BACTERIA NONE SEEN /HPF; EPITHELIAL CELLS 1+ /HPF; MUCUS NONE SEEN /LPF; RED BLOOD CELLS 0-5 /HPF (0-5); UCUL ADDED? NO; WHITE BLOOD CELLS 0-5 /HPF (0-5)
[2017-12-06 21:11] LABS: ALKALINE PHOSPHATASE 152 IU/L (3-129); ALT (GPT) 24 IU/L (3-49); AST (GOT) 21 IU/L (2-34); GFR ESTIMATE (CALCULATED) > 59 mL/min/; GLUCOSE 418 mg/dL (70-99); LIPASE 13 U/L (1.0-51.0); TOTAL BILIRUBIN 1.1 mg/dL (0.0-1.0); UREA NITROGEN (BUN) 16 mg/dL (9-23)
[2017-12-07 00:03] LABS: SODIUM 140 mEq/L (136-147)
[2017-12-07 00:04] LABS: GLUCOSE 225 mg/dL (70-99)
[2017-12-07 00:08] LABS: CREATININE 0.8 mg/dL (0.6-1.3); GFR ESTIMATE (CALCULATED) > 59 mL/min/
[2017-12-07 00:09] LABS: UREA NITROGEN (BUN) 13 mg/dL (9-23)
[2017-12-07 00:13] LABS: CHLORIDE 109 mEq/L (99-109)
[2017-12-07 02:00] VITALS: BP 104/52
[2017-12-07] MEDS ORDERED: KEFLEX500 MG PO (02:01)
== END 2017-12-07 02:01 | disposition home or self-care (01) ==
LOC: EME 19:13
PROVIDERS: Emergency Medicine
DX: E11.65 Type 2 diabetes mellitus with hyperglycemia (principal); Z79.4 Long term (current) use of insulin; Z96.41 Presence of insulin pump (external) (internal); L03.311 Cellulitis of abdominal wall; K21.9 Gastro-esophageal reflux disease without esophagitis; G43.909 Migraine, unspecified, not intractable, without status migrainosus; R56.9 Unspecified convulsions; J30.89 Other allergic rhinitis; F41.9 Anxiety disorder, unspecified; F32.9 Major depressive disorder, single episode, unspecified; F31.9 Bipolar disorder, unspecified; F17.200 Nicotine dependence, unspecified, uncomplicated; Z79.01 Long term (current) use of anticoagulants; Z86.73 Personal history of transient ischemic attack (TIA), and cerebral infarction without residual deficits; Z87.19 Personal history of other diseases of the digestive system; Z86.69 Personal history of other diseases of the nervous system and sense organs; Z87.39 Personal history of other diseases of the musculoskeletal system and connective tissue; Z90.49 Acquired absence of other specified parts of digestive tract; Z90.710 Acquired absence of both cervix and uterus; Z98.51 Tubal ligation status; Z88.8 Allergy status to other drugs, medicaments and biological substances; Z91.018 Allergy to other foods
CPT/HCPCS: 71045; 80048 91; 80053; 81003; 82803; 82948; 83690; 85025; 99281; 99284; J1200; J2765; J7030

== ENCOUNTER 2017-12-26 15:38 | Emergency (ER) | payer OTHER ==
[~2017-12-26] VITALS: Ht 160 cm; Wt 100.2 kg
[2017-12-26 17:43] LABS: BASOPHIL (%) 0.4 % (0-1); EOSINOPHIL (%) 0 % (0-5); HEMATOCRIT 43.6 % (36.0-46.0); HEMOGLOBIN 14.5 G/DL (11.9-15.5); IMMATURE GRANULOCYTE (%) 0.3 % (0.0-0.7); LYMPHOCYTE (%) 34.4 % (15-42); LYMPHOCYTE COUNT 2.6 K/uL (1.0-2.8); MCH 32.4 PG (29.0-34.0); MCHC 33.3 G/DL (30.0-36.0); MCV 97.3 FL (83-99); MONOCYTE (%) 6.7 % (3-12); MONOCYTE COUNT 0.5 K/uL (0-0.8); NEUTROPHIL (%) 58.2 % (45-76); NEUTROPHIL COUNT 4.3 K/uL (1.8-6.4); RBC DIS.WIDTH-CV 14.1 % (11.8-14.6); RBC DIS.WIDTH-SD 50.7 % (39-53); RED BLOOD COUNT 4.48 M/uL (3.80-5.20); WHITE BLOOD COUNT 7.5 K/uL (4.1-10.2)
[2017-12-26 17:44] LABS: PLATELET COUNT 156 K/uL (156-360)
[2017-12-26 17:58] LABS: ALBUMIN 3.9 g/dL (3.2-4.8); CHLORIDE 104 mEq/L (99-109); POTASSIUM 3.8 mEq/L (3.7-5.4); SODIUM 141 mEq/L (136-147)
[2017-12-26 18:00] LABS: GLUCOSE 106 mg/dL (70-99); TOTAL PROTEIN 6.7 g/dL (6.4-8.3)
[2017-12-26 18:02] LABS: TOTAL BILIRUBIN 0.7 mg/dL (0.0-1.0)
[2017-12-26 18:04] LABS: ALKALINE PHOSPHATASE 123 IU/L (3-129); CREATININE 0.8 mg/dL (0.6-1.3); GFR ESTIMATE (CALCULATED) > 59 mL/min/
[2017-12-26 18:05] LABS: AST (GOT) 13 IU/L (2-34); UREA NITROGEN (BUN) 11 mg/dL (9-23)
[2017-12-26 18:07] LABS: ALT (GPT) 11 IU/L (3-49)
[2017-12-26 20:51] VITALS: BP 135/71
== END 2017-12-26 20:52 | disposition home or self-care (01) ==
LOC: EME 15:38
PROVIDERS: Emergency Medicine
DX: R51 Headache (principal); E11.9 Type 2 diabetes mellitus without complications; K21.9 Gastro-esophageal reflux disease without esophagitis; G91.9 Hydrocephalus, unspecified; R56.9 Unspecified convulsions; F31.9 Bipolar disorder, unspecified; F41.9 Anxiety disorder, unspecified; F32.9 Major depressive disorder, single episode, unspecified; F17.200 Nicotine dependence, unspecified, uncomplicated; Z79.01 Long term (current) use of anticoagulants; Z79.4 Long term (current) use of insulin; Z98.2 Presence of cerebrospinal fluid drainage device; Z96.41 Presence of insulin pump (external) (internal); Z98.890 Other specified postprocedural states; Z98.51 Tubal ligation status; Z86.73 Personal history of transient ischemic attack (TIA), and cerebral infarction without residual deficits; Z90.49 Acquired absence of other specified parts of digestive tract; Z90.710 Acquired absence of both cervix and uterus; Z91.018 Allergy to other foods; Z88.8 Allergy status to other drugs, medicaments and biological substances; Z91.048 Other nonmedicinal substance allergy status
CPT/HCPCS: 70450; 80053; 82948; 85025; 99281; 99285